=== PATIENT | male | born 1965 | race Caucasian/White ===

== ENCOUNTER 2017-01-17 19:09 | Emergency (ER) | payer MEDICAID ==
[2017-01-17] MEDS ORDERED: LIDOCAINE 1% INJ-PF (10 MG/ML) 30 ML SDV INJ ONE (22:08)
--- NOTE | 2017-01-17 22:11 | ER Document Report ---
ED Skin Rash/Insect Bite/Abscs <SONPOOJA MckeonELEAZAR - Last Filed: 01/17/17 22:58> - General Information source: Patient TRAVEL OUTSIDE OF THE [place] IN LAST 30 DAYS: No - HPI Patient complains to provider of: Other - abscess Onset: Other - 3 days Onset/Duration: Persistent <SHA ROSE - Last Filed: 01/21/17 07:03> - General Chief Complaint: Abscess Stated Complaint: LEFT ARM POSSIBLE ABSCESS Notes: Patient is a 51 year old male with a history of gout and pancreatic cancer presents to the ED with complaints of an abscess on his left volar forearm x3 days. Patient states he fell into a table 3 days ago and since then the abscess has presented with redness, swelling, pain and purulent drainage. Patients has been squeezing it daily to try and drain it. Patient denies any fever at this time. Patients reports that patient being diaphoretic at night but states that is normal since he began chemotherapy. Patients last chemo treatment was 01/08/2017. No other concerns or complaints at this time. (SHA ROSE) - Related Data Allergies/Adverse Reactions: No Known Allergies Allergy (Unverified 01/17/17 19:16) Past Medical History - General Information source: Patient - Social History Smoking Status: Unknown if Ever Smoked Family History: Reviewed & Not Pertinent Renal/ Medical History: Denies: Hx Peritoneal Dialysis Malignancy Medical History: Reports Hx Pancreatic Cancer Musculoskeltal Medical History: Reports Hx Gout Past Surgical History: Reports: Hx Orthopedic Surgery - back <SHA ROSE - Last Filed: 01/21/17 07:03> Review of Systems - Review of Systems Constitutional: See HPI, Diaphoresis. denies: Fever EENT: No symptoms reported Cardiovascular: No symptoms reported Respiratory: No symptoms reported Gastrointestinal: No symptoms reported Genitourinary: No symptoms reported Male Genitourinary: No symptoms reported Musculoskeletal: No symptoms reported Skin: See HPI, Other - abscess Hematologic/Lymphatic: No symptoms reported Neurological/Psychological: No symptoms reported <SHA ROSE - Last Filed: 01/21/17 07:03> Physical Exam - General General appearance: Appears well In distress: None - HEENT Head: Normocephalic, Atraumatic Eyes: Normal Extraocular movements intact: Yes Pupils: PERRL - Respiratory Respiratory status: No respiratory distress Breath sounds: Normal - Cardiovascular Rhythm: Regular Heart sounds: Normal auscultation Murmur: No - Abdominal Inspection: Normal Distension: No distension - Back Back: Normal - Extremities General upper extremity: Other - abscess on left volar forearm, see skin - Neurological Neuro grossly intact: Yes - Psychological Associated symptoms: Normal affect, Normal mood - Skin Skin Temperature: Warm Skin Moisture: Dry Skin Color: Normal Skin irregularity: Abscess - red and bruised area with swelling with central purulent drainage in left volar forearm, culture obtained <SHA ROSE - Last Filed: 01/21/17 07:03> - Vital signs Vitals: Temp Pulse Resp BP Pulse Ox 99.0 F 93 16 103/74 97 01/17/17 19:15 01/17/17 19:15 01/17/17 19:15 01/17/17 19:15 01/17/17 19:15 Procedures - Incision and Drainage Left Distal Arm Time completed: 22:55 Type: Simple Anesthetic type: 1% Lidocaine mL's of anesthetic: 4 I&D procedure: Shurclens applied, Iodoform packing placed Amount/type of drainage: minimal <ELEAZAR CLINE - Last Filed: 01/17/17 22:58> <SHA ROSE - Last Filed: 01/21/17 07:03> - Incision and Drainage Left Distal Arm Notes: 01/17/17 23:03 The abscess was opened with a mosquito. Large amount of necrotic debris, fat, and old clot was removed. The wound was irrigated with 30 mL's of normal saline. Quarter-inch iodoform gauze packing was placed. (ELEAZAR CLINE) Discharge <ELEAZAR CLINE - Last Filed: 01/17/17 22:58> <SHA ROSE - Last Filed: 01/21/17 07:03> - Discharge Clinical Impression: Abscess of forearm, left Condition: Stable Disposition: HOME, SELF-CARE Additional Instructions: Abscess: You have an abscess (boil). This a pus-forming infection, usually due to staph. Some boils may be left to drain on their own, but most require lancing. From the time the tender lump first appears, it may be three or four days before the abscess is ready to laurent. Local heat and rest help at this stage of treatment. An antibiotic may prevent spread of the infection. Once the abscess is opened, packing may be placed into it. This is done so pus is not sealed inside by premature closure of the cavity. The packing will be removed at your follow-up visit or you may be advised to remove it yourself at home. Sometimes this packing must be replaced a few times during healing. The wound will heal with surprisingly little scar. Depending on the size and location of an abscess, healing can take one to four weeks. You may shower and wash the area around the incision site two or three times a day. Antibiotics may be prescribed, but are usually not necessary after an abscess has been drained. If you develop fever, chilling, worsening pain, or increasing swelling in the area, call the doctor or return immediately. Keep the wound dressing clean and dry. Elevate the hand all the time. Take antibiotics as prescribed. Remove the dressing and the gauze packing on Friday. Keep wound clean and dressed after removing the packing. Follow-up with your doctor Friday to recheck the wound. RETURN TO THE EMERGENCY ROOM IF ANY NEW OR WORSENING SYMPTOMS. Prescriptions: Cephalexin Monohydrate [Keflex 500 mg Capsule] 500 mg PO QID #28 capsule Sulfamethoxazole/Trimethoprim [Bactrim Ds Tablet] 2 tab PO BID #28 tablet Scribe Attestation: 01/17/17 23:01 I personally performed the services described in the documentation, reviewed and edited the documentation which was dictated to the scribe in my presence, and it accurately records my words and actions. (ELEAZAR CLINE) Scribe Documentation - Scribe Written by Eda:: eda Lowery, 01/17/2017, [id number] acting as scribe for :: Son <SHA ROSE - Last Filed: 01/21/17 07:03>
[2017-01-17] MEDS ORDERED: SULFAMETHOXAZOLE/TRIMETHOPRIM 800-160 MG TABLET PO ONE (22:58)
[2017-01-17] MEDS ORDERED: CEPHALEXIN 500 MG CAPSULE PO ONE (22:58)
[2017-01-17 23:18] VITALS: BP 123/84
== END 2017-01-17 23:16 | disposition home or self-care (01) ==
LOC: ER 19:09
PROC: 0H9EXZZ Drainage of Left Lower Arm Skin, External Approach (ICD-10-PCS; principal; 2017-01-17)
DX: L02.414 Cutaneous abscess of left upper limb (principal); C25.9 Malignant neoplasm of pancreas, unspecified; R61 Generalized hyperhidrosis
CPT/HCPCS: 99283; 87070; 87075; 87077; 87186; 10060; J3490 ×2; 87205; A6266

== ENCOUNTER 2017-02-07 17:27 | Emergency (ER) | payer MEDICAID ==
--- NOTE | 2017-02-07 17:51 | ER Document Report ---
ED Seizure - General Chief Complaint: Seizure Stated Complaint: POSSIBLE SEIZURE Time Seen by Provider: 02/07/17 17:31 Mode of Arrival: Medic Information source: Patient, Relative Notes: EMS was called after patient had a witnessed seizure just prior to arrival. EMS reports that patient was initially responsive only to painful stimuli and was combative and attempting to pull out his IV. Patient upon entry to room is alert and talkative with family. Patient denies any complaints at present. Family states that patient did have a previous seizure about 3 months ago which was his first seizure ever. Patient does have a history of stage IV pancreatic cancer for which he received chemotherapy. Patient gets chemotherapy every 2 weeks and his last treatment was Friday. Patient was sitting in a chair when he had the seizure and did not have any fall to the floor or injury as a result of his seizure as his family was right there with him. - HPI Patient complains to provider of: History of seizures Quality of pain: No pain Preceding symptoms/context: denies: Recent alcohol intake Character of seizure: Generalized shaking, Staring Post-ictal symptoms: Confusion Injuries: None - Related Data Allergies/Adverse Reactions: No Known Allergies Allergy (Unverified 01/17/17 19:16) Past Medical History - General Information source: Patient, Relative - Social History Smoking Status: Current Every Day Smoker Frequency of alcohol use: None Drug Abuse: None Occupation: none Lives with: Family Family History: Reviewed & Not Pertinent - Past Medical History Cardiac Medical History: Reports: Hx Pulmonary Embolism Neurological Medical History: Reports: Hx Seizures Renal/ Medical History: Denies: Hx Peritoneal Dialysis Malignancy Medical History: Reports Hx Pancreatic Cancer Musculoskeltal Medical History: Reports Hx Gout Past Surgical History: Reports: Hx Orthopedic Surgery - back, Hx Vascular Surgery - port Review of Systems - Review of Systems Constitutional: No symptoms reported. denies: Fever, Recent illness EENT: No symptoms reported Cardiovascular: No symptoms reported. denies: Chest pain Respiratory: No symptoms reported. denies: Cough, Short of breath Gastrointestinal: No symptoms reported. denies: Nausea, Vomiting Genitourinary: No symptoms reported Male Genitourinary: No symptoms reported Musculoskeletal: No symptoms reported Skin: No symptoms reported Hematologic/Lymphatic: Easy bruising Neurological/Psychological: Confusion - initially after seizure, now resolved, Seizure. denies: Headaches Physical Exam - Vital signs Vitals: Temp Pulse Resp BP Pulse Ox 98.9 F 91 18 104/81 95 02/07/17 17:47 02/07/17 17:47 02/07/17 17:47 02/07/17 17:47 02/07/17 17:47 - General General appearance: Appears well, Alert In distress: None - HEENT Head: Normocephalic, Atraumatic Eyes: Normal Conjunctiva: Normal Extraocular movements intact: Yes Pupils: PERRL Nasal: Normal Mouth/Lips: Normal Mucous membranes: Normal Pharynx: Normal Neck: Normal, Lymphadenopathy. No: Supple - Respiratory Respiratory status: No respiratory distress Chest status: Nontender Breath sounds: Normal. No: Rales, Rhonchi, Stridor, Wheezing Chest palpation: Normal - Cardiovascular Rhythm: Regular Heart sounds: S1 appreciated, S2 appreciated Murmur: No - Back Back: Normal, Nontender. No: CVA tenderness - Extremities General upper extremity: Normal inspection, Normal ROM General lower extremity: Normal inspection, Normal ROM - Neurological Neuro grossly intact: Yes Kaylynn Coma Scale Eye Opening: Spontaneous Kaylynn Coma Scale Verbal: Oriented Lavelle Coma Scale Motor: Obeys Commands Kaylynn Coma Scale Total: 15 - Psychological Associated symptoms: Normal affect, Normal mood - Skin Skin Temperature: Warm Skin Moisture: Dry Skin Color: Ecchymosis - bilat upper extremities Course - Re-evaluation Re-evalutation: 02/07/17 17:[address] Anderson who agrees with planned diagnostic evaluation 02/07/17 19:03 Patient nauseated, patient vomited once while here. Patient takes Compazine to help with nausea and vomiting as a result of his chemo. Family states that typically he will vomit on his chemo days and they are not surprised by him feeling nauseous at this time as he just disconnected this afternoon from dose of chemotherapy. - Vital Signs Vital signs: Temp Pulse Resp BP Pulse Ox 98.9 F 91 18 104/81 95 02/07/17 17:47 02/07/17 17:47 02/07/17 17:47 02/07/17 17:47 02/07/17 17:47 - Laboratory Result Diagrams: 02/07/17 18:18 02/07/17 18:18 Laboratory results interpreted by me: 02/07/17 02/07/17 18:18 18:18 RBC 3.93 L Hgb 12.8 L Hct 37.7 L RDW 16.5 H Plt Count 131 L Sodium 134.7 L Magnesium 2.5 H Albumin 3.4 L Labs- Entire Visit 02/07/17 02/07/17 18:18 18:18 WBC 4.1 RBC 3.93 L Hgb 12.8 L Hct 37.7 L MCV 96 MCH 32.6 MCHC 34.0 RDW 16.5 H Plt Count 131 L Seg Neutrophils % 59.9 Lymphocytes % 30.1 Monocytes % 8.8 Eosinophils % 0.0 Basophils % 1.2 Absolute Neutrophils 2.4 Absolute Lymphocytes 1.2 Absolute Monocytes 0.4 Absolute Eosinophils 0.0 Absolute Basophils 0.0 Sodium 134.7 L Potassium 3.9 Chloride 98 Carbon Dioxide 25 Anion Gap 12 BUN 8 Creatinine 0.54 Est GFR ( Amer) > 60 Est GFR (Non-Af Amer) > 60 Glucose 108 Calcium 8.5 Magnesium 2.5 H Total Bilirubin 0.7 Direct Bilirubin 0.4 Indirect Bilirubin Not Reportable Neonat Total Bilirubin Not Reportable AST 28 ALT 23 Alkaline Phosphatase 97 Total Protein 6.6 Albumin 3.4 L 02/07/17 19:11 - Diagnostic Test Radiology reviewed: Reports reviewed Discharge - Discharge Clinical Impression: Seizure, Chemotherapy induced nausea and vomiting Condition: Stable Disposition: HOME, SELF-CARE Instructions: Vomiting ([facility]), Seizure, Known Epileptic ([facility]) Additional Instructions: Return immediately for any new or worsening symptoms Followup with your primary care provider, Ronaldo Haider, call tomorrow to make a followup appointment Follow-up with your oncologist on Friday for recheck. Return immediately over the weekend if you have any additional seizure like activity Do not drive or operate any vehicles or machinery
--- NOTE | 2017-02-07 18:20 | RADIOLOGY REPORT (SQ) ---
EXAM DESCRIPTION: CT HEAD WITHOUT COMPLETED DATE/TIME: 02/07/2017 6:12 pm REASON FOR STUDY: seizure, hx pancreatic cancer COMPARISON: None. TECHNIQUE: Axial images acquired through the brain without intravenous contrast. Images reviewed wi th bone, brain and subdural windows. Images stored on PACS. All CT scanners at this facility use dose modulation, iterative reconstruction, and/or weight based d osing when appropriate to reduce radiation dose to as low as reasonably achievable (ALARA). [facility]: Dose Right [facility]: CareDose [facility]: Dose Right [facility]: Teradose 4D [facility]: Smart GeoOP RADIATION DOSE: Up-to-date CT equipment and radiation dose reduction techniques were employed. CTDIv ol: 64.6 mGy. DLP: 1551 mGy-cm. mGy. LIMITATIONS: None. FINDINGS: VENTRICLES: Normal size and contour. CEREBRUM: No masses. No hemorrhage. No midline shift. Normal wang/white matter differentiation. N o evidence for acute infarction. CEREBELLUM: No masses. No hemorrhage. No alteration of density. No evidence for acute infarction. EXTRAAXIAL SPACES: No fluid collections. No masses. ORBITS AND GLOBE: No intra- or extraconal masses. Normal contour of globe without masses. CALVARIUM: No fracture. PARANASAL SINUSES: No fluid or mucosal thickening. SOFT TISSUES: No mass or hematoma. OTHER: No other significant finding. IMPRESSION: NORMAL BRAIN CT WITHOUT CONTRAST. TECHNICAL DOCUMENTATION: JOB ID: [id number] Quality ID # [id number]: Final reports with documentation of one or more dose reduction techniques (e.g., Au tomated exposure control, adjustment of the mA and/or kV according to patient size, use of iterative reconstruction technique) 2010 [employer]- All Rights Reserved
[2017-02-07 18:28] LABS: ABSOLUTE LYMPHOCYTES (AUTO) 1.2 10^3/uL (0.5-4.7); ABSOLUTE MONOCYTES (AUTO) 0.4 10^3/uL (0.1-1.4); ABSOLUTE NEUT (AUTO) 2.4 10^3/uL (1.7-8.2); BASOPHILS % (AUTO) 1.2 % (0-2); HEMATOCRIT 37.7 % (37.9-51.0); HEMOGLOBIN 12.8 g/dL (13.5-17.0); HGB HCT DIFFERENCE 0.7; LYMPHOCYTES % (AUTO) 30.1 % (13-45); MEAN CORPUSCULAR HEMOGLOBIN 32.6 pg (27.0-33.4); MEAN CORPUSCULAR VOLUME 96 fl (80-97); MONOCYTES % (AUTO) 8.8 % (3-13); RED BLOOD COUNT 3.93 10^6/uL (4.35-5.55); RED CELL DISTRIBUTION WIDTH 16.5 % (11.5-14.0); SEGMENTED NEUTROPHILS % (AUTO) 59.9 % (42-78); WHITE BLOOD COUNT 4.1 10^3/uL (4.0-10.5)
[2017-02-07 18:48] LABS: ALANINE AMINOTRANSFERASE 23 U/L (21-72); ALBUMIN 3.4 g/dL (3.5-5.0); ALKALINE PHOSPHATASE 97 U/L (38-126); ANION GAP 12 (5-19); ASPARTATE AMINO TRANSFERASE 28 U/L (17-59); BILIRUBIN,DIRECT 0.4 mg/dL (0.0-0.4); BILIRUBIN,TOTAL 0.7 mg/dL (0.2-1.3); BLOOD UREA NITROGEN 8 mg/dL (7-20); CALCIUM 8.5 mg/dL (8.4-10.2); CARBON DIOXIDE 25 mmol/L (22-30); CHLORIDE 98 mmol/L (98-107); CREATININE RESULT 0.54 mg/dL (0.52-1.25); GLUCOSE 108 mg/dL (75-110); MAGNESIUM 2.5 mg/dL (1.6-2.3); POTASSIUM 3.9 mmol/L (3.6-5.0); SODIUM 134.7 mmol/L (137-145); TOTAL PROTEIN 6.6 g/dL (6.3-8.2)
[2017-02-07] MEDS ORDERED: PROCHLORPERAZINE EDISYLATE INJ 10 MG/2 ML VIAL IV ONE (19:03)
[2017-02-07 19:51] VITALS: BP 102/77
--- NOTE | 2017-02-08 16:38 | EKG REPORT ---
SEVERITY:- ABNORMAL ECG - SINUS RHYTHM LOW VOLTAGE THROUGHOUT CONSIDER ANTEROSEPTAL INFARCT : Confirmed by: Cora Dutton 08-Feb-2017 16:37:50
== END 2017-02-07 19:51 | disposition home or self-care (01) ==
LOC: ER 17:27
DX: R56.9 Unspecified convulsions (principal); R11.2 Nausea with vomiting, unspecified; Z79.899 Other long term (current) drug therapy; F17.200 Nicotine dependence, unspecified, uncomplicated
CPT/HCPCS: 93005; 99284; 96374; 36415; 83735; 85025; 80053; 70450; 93010; J0780

== ENCOUNTER 2017-06-07 09:02 | Inpatient (IN) | payer MEDICAID ==
[2017-06-07] MEDS ORDERED: RINGERS SOLUTION,LACTATED 1,000 ML IV ONE (09:24)
[2017-06-07] MEDS ORDERED: NORMAL SALINE 1000 ML 1,000 ML IV PRN (09:24)
--- NOTE | 2017-06-07 09:31 | ER Document Report ---
ED Seizure - General Chief Complaint: Seizure Stated Complaint: SEIZURE Time Seen by Provider: 06/07/17 09:08 Notes: 2-year-old male terminally ill with pancreatic cancer with this disease, was not eating and drinking for the last 3 days, this morning he had 2 episodes of seizures. He had another episode of seizure a few weeks ago. EMS was called with, gave Versed and brought him into the ED. His mental status is gradually going down, he has been taking chemotherapy 2. He has not drank anything for the last 3 days and had anything for 3 days. There is no history of any fever. History also limited - Related Data Allergies/Adverse Reactions: No Known Allergies Allergy (Verified 06/07/17 10:21) Home Medications: Current Home Medications Fentanyl [Fentanyl] 200 mcg TOP Q72H 06/07/17 [History] Furosemide [Lasix 20 mg Tablet] 20 mg PO QAM 06/07/17 [History] Levetiracetam [Keppra 500 mg Tablet] 500 mg PO Q12 06/07/17 [History] Magnesium Oxide [Mag-Ox 400 mg Tablet] 400 mg PO BID 06/07/17 [History] Morphine Sulfate [Morphine Ir 15 Mg Tablet] 1 - 2 tab PO Q4H PRN 06/07/17 [ History] Potassium Chloride [Klor-Con M10] 10 meq PO DAILY 06/07/17 [History] Prochlorperazine Maleate [Compazine 10 mg Tablet] 10 mg PO Q6H PRN 06/07/17 [ History] Rivaroxaban [Xarelto] 20 mg PO DAILY 06/07/17 [History] Spironolactone 25 mg PO DAILY PRN 06/07/17 [History] Past Medical History - Social History Smoking Status: Former Smoker Family History: Reviewed & Not Pertinent - Past Medical History Cardiac Medical History: Reports: Hx Pulmonary Embolism Neurological Medical History: Reports: Hx Seizures Renal/ Medical History: Denies: Hx Peritoneal Dialysis Malignancy Medical History: Reports Hx Pancreatic Cancer Musculoskeltal Medical History: Reports Hx Gout Past Surgical History: Reports: Hx Orthopedic Surgery - back, Hx Vascular Surgery - port Review of Systems - Review of Systems -: Yes ROS unobtainable due to patient's medical condition Physical Exam - Vital signs Vitals: Temp Pulse Resp BP Pulse Ox 97.7 F 107 H 19 104/80 84 L 06/07/17 09:10 06/07/17 09:10 06/07/17 09:10 06/07/17 09:10 06/07/17 09:10 - Notes Notes: PHYSICAL EXAMINATION: GENERAL: Cachectic, unresponsive to painful stimuli, DNR status, hydrated. HEAD: Atraumatic, normocephalic. EYES: Pupils equal round and reactive to light, ENT: Nares patent, oropharynx clear without exudates. Dry mucosa NECK: Normal range of motion, supple without lymphadenopathy LUNGS: Clear to auscultation could not audible breath sounds. No wheezes rales or rhonchi. HEART: Regular rate and rhythm without murmurs ABDOMEN: Soft, scaphoid. No guarding, no rebound. No masses appreciated. Musculoskeletal: Wasting of muscles NEUROLOGICAL: Normal scale of the PSYCH: \ SKIN: Dry skin Course - Re-evaluation Re-evalutation: 06/07/17 09:01 The family was contacted and they are in the room, had a long discussion with them about this, he has a living will which indicates only palliative care. And also DNR status. 06/07/17 11:02 Again had a long discussion for about 10 minutes, family asked a question of survival for him and finally came to the conclusion that they agree with his will and need palliative care possibly hospice care to. 06/07/17 16:20 Patient's case was discussed with hospitalist and currently being admitted, hospice will not take him till Friday. - Vital Signs Vital signs: Temp Pulse Resp BP Pulse Ox 97.7 F 107 H 13 117/81 100 06/07/17 09:10 06/07/17 09:10 06/07/17 15:01 06/07/17 15:01 06/07/17 15:01 - Laboratory Result Diagrams: 06/07/17 09:23 06/07/17 09:23 Laboratory results interpreted by me: 06/07/17 06/07/17 06/07/17 09:23 09:23 09:23 RBC 4.20 L Hgb 13.2 L RDW 18.1 H Seg Neutrophils % 85.7 H Lymphocytes % 10.3 L Carbon Dioxide 13 L Anion Gap 24 H Glucose 137 H Lactic Acid 11.8 H Magnesium 2.4 H Ammonia Total Protein 6.2 L 06/07/17 09:23 RBC Hgb RDW Seg Neutrophils % Lymphocytes % Carbon Dioxide Anion Gap Glucose Lactic Acid Magnesium Ammonia 57.7 H Total Protein Discharge - Discharge Clinical Impression: 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
[2017-06-07 09:39] LABS: ABSOLUTE BASOPHILS # (AUTO) 0.1 10^3/uL (0.0-0.2); ABSOLUTE LYMPHOCYTES (AUTO) 0.9 10^3/uL (0.5-4.7); ABSOLUTE MONOCYTES (AUTO) 0.3 10^3/uL (0.1-1.4); ABSOLUTE NEUT (AUTO) 7.4 10^3/uL (1.7-8.2); BASOPHILS % (AUTO) 0.6 % (0-2); EOSINOPHILS % (AUTO) 0.3 % (0-6); HEMATOCRIT 40.2 % (37.9-51.0); HEMOGLOBIN 13.2 g/dL (13.5-17.0); HGB HCT DIFFERENCE -0.6; LYMPHOCYTES % (AUTO) 10.3 % (13-45); MEAN CORPUSCULAR HEMOGLOBIN 31.3 pg (27.0-33.4); MEAN CORPUSCULAR HGB CONC 32.7 g/dL (32.0-36.0); MEAN CORPUSCULAR VOLUME 96 fl (80-97); MONOCYTES % (AUTO) 3.1 % (3-13); RED CELL DISTRIBUTION WIDTH 18.1 % (11.5-14.0); SEGMENTED NEUTROPHILS % (AUTO) 85.7 % (42-78); WHITE BLOOD COUNT 8.6 10^3/uL (4.0-10.5)
[2017-06-07 10:05] LABS: ALANINE AMINOTRANSFERASE 37 U/L (21-72); ALBUMIN 3.7 g/dL (3.5-5.0); ALKALINE PHOSPHATASE 98 U/L (38-126); ASPARTATE AMINO TRANSFERASE 29 U/L (17-59); BILIRUBIN,DIRECT 0.4 mg/dL (0.0-0.4); BILIRUBIN,TOTAL 0.8 mg/dL (0.2-1.3); BLOOD UREA NITROGEN 13 mg/dL (7-20); CALCIUM 8.9 mg/dL (8.4-10.2); CARBON DIOXIDE 13 mmol/L (22-30); CHLORIDE 101 mmol/L (98-107); CREATININE RESULT 0.67 mg/dL (0.52-1.25); GLUCOSE 137 mg/dL (75-110); MAGNESIUM 2.4 mg/dL (1.6-2.3); POTASSIUM 3.8 mmol/L (3.6-5.0); SODIUM 137.5 mmol/L (137-145); TOTAL PROTEIN 6.2 g/dL (6.3-8.2)
[2017-06-07 10:06] LABS: ALCOHOL < 10 mg/dL (NONE DETECTED)
[2017-06-07 10:07] LABS: ANION GAP 24 (5-19)
[2017-06-07] MEDS ORDERED: METOCLOPRAMIDE HCL INJ/PF 10 MG/2 ML SDV IV ONE (11:06)
--- NOTE | 2017-06-07 12:38 | RADIOLOGY REPORT (SQ) ---
EXAM DESCRIPTION: CHEST SINGLE VIEW COMPLETED DATE/TIME: 06/07/2017 12:22 pm REASON FOR STUDY: cough COMPARISON: None. EXAM PARAMETERS: NUMBER OF VIEWS: One view. TECHNIQUE: Single frontal radiographic view of the chest acquired. RADIATION DOSE: NA LIMITATIONS: None. FINDINGS: LUNGS AND PLEURA: No opacities, masses or pneumothorax. No pleural effusion. MEDIASTINUM AND HILAR STRUCTURES: No masses. Contour normal. HEART AND VASCULAR STRUCTURES: Heart normal in size. Normal vasculature. BONES: No acute findings. HARDWARE: Vascular access port. OTHER: No other significant finding. IMPRESSION: NO ACUTE RADIOGRAPHIC FINDING IN THE CHEST. TECHNICAL DOCUMENTATION: JOB ID: [id number] [employer]- All Rights Reserved
[2017-06-07] MEDS ORDERED: PROMETHAZINE HCL INJ 25 MG/1 ML VIAL ONE ×2 (12:48→12:51)
[2017-06-07] MEDS ORDERED: PROMETHAZINE HCL INJ 50 MG/1 ML VIAL IM PRN (12:48)
[2017-06-07] MEDS ORDERED: IPRATROPIUM/ALBUTEROL 0.5-2.5 MG/3 ML AMPUL NEB PRN (16:51)
[2017-06-07] MEDS ORDERED: POTASSI CL 10 MEQ/D5-1/2NS 1L 10 MEQ/1,000 ML RTUINJ IV PRN (16:51)
[2017-06-07] MEDS ORDERED: HYDROMORPHONE HCL INJ/PF 2 MG/ML AMPULE IV PRN (16:51)
[2017-06-07] MEDS ORDERED: LEVETIRACETAM 1000 MG/NACL-ISO 1,000 MG/100 ML RTUPB IV PRN ×2 (16:51→18:02)
[2017-06-07] MEDS ORDERED: DEXTROSE 50%-WATER 25 GM/50 ML DISP.SYRIN IV PRN ×2 (16:51)
[2017-06-07] MEDS ORDERED: DEXTROSE 40% GEL 15 GM TUBE PO PRN ×2 (16:51)
[2017-06-07] MEDS ORDERED: ONDANSETRON HCL INJ/PF 4 MG/2 ML SDV IV PRN ×2 (16:51→18:06)
[2017-06-07] MEDS ORDERED: PROMETHAZINE HCL INJ 25 MG/1 ML VIAL IV PRN (16:51)
[2017-06-07] MEDS ORDERED: ACETAMINOPHEN 650 MG SUPP.RECT PR PRN (16:51)
[2017-06-07] MEDS ORDERED: GLUCAGON,HUMAN RECOMB 1 MG INJ SUBCUT PRN (16:51)
--- NOTE | 2017-06-07 18:01 | PDOC H&P ---
History of Present Illness Admission Date/PCP: 06/07/17 16:38 Patient complains of: I do not want to be bothered History of Present Illness: PETRA HARO JR is a 52 year old male with a history of metastatic pancreatic cancer who arrived to ED via EMS since had seizure while at home. It is my understanding that while in route had 2 consecutive seizures and was medicated with a total of 5 mg of Versed. Patient had been living with his sister close to a year. Patient sees Dr. Haider over [place] for treatment of metastatic cancer. This past week patient finalized all the details about his will. Family relate that patient appeared to be relieved and had been accepting finally that he does have cancer and nothing can be done. He continues smoking and has a history of alcohol abuse. Patient had not been taking his usual medications therefore likely contributing to seizure according to his sister. Patient also had been having nausea and nurse notified that patient was treated with Phenergan 50 mg IM. Attempts have been made in ED to transfer patient for hospice bed is my understanding that there is no hospice MD but until Friday. Patient's sister wishes to take him home with hospice. She is her next of kin and expresses that patient is DNR and wanting comfort measures only. Patient will be admitted under the hospitalist service to facilitate pain management on this terminal patient. Past Medical History Cardiac Medical History: Reports: Pulmonary Embolism Pulmonary Medical History: Reports: Chronic Obstructive Pulmonary Disease (COPD) EENT Medical History: Reports: None Neurological Medical History: Reports: None, Seizures Endocrine Medical History: Reports: None Renal/ Medical History: Reports: None Malignancy Medical History: Reports: Pancreatic Cancer Musculoskeltal Medical History: Reports: Gout Past Surgical History Past Surgical History: Reports: Orthopedic Surgery - back, Vascular Surgery - port Social History Information Source: Relative Smoking Status: Current Every Day Smoker Frequency of Alcohol Use: None Hx Recreational Drug Use: Yes Drugs: Marijuana Hx Prescription Drug Abuse: No - Advance Directive Resuscitation Status: Comfort Measures Only Family History Family History: Reviewed & Not Pertinent Parental Family History Reviewed: Yes Children Family History Reviewed: Yes Sibling(s) Family History Reviewed.: Yes Medication/Allergy Home Medications: Fentanyl [Fentanyl] 200 mcg TOP Q72H 06/07/17 Furosemide [Lasix 20 mg Tablet] 20 mg PO QAM 06/07/17 Levetiracetam [Keppra 500 mg Tablet] 500 mg PO Q12 12/09/17 Magnesium Oxide [Mag-Ox 400 mg Tablet] 400 mg PO BID 06/07/17 Morphine Sulfate [Morphine Ir 15 Mg Tablet] 1 - 2 tab PO Q4H PRN 06/07/17 Potassium Chloride [Klor-Con M10] 10 meq PO DAILY 06/07/17 Prochlorperazine Maleate [Compazine 10 mg Tablet] 10 mg PO Q6H PRN 06/07/17 Rivaroxaban [Xarelto] 20 mg PO DAILY 06/07/17 Spironolactone 25 mg PO DAILY PRN 06/07/17 Allergies/Adverse Reactions: No Known Allergies Allergy (Verified 06/07/17 10:21) Physical Exam Vital Signs: Temp Pulse Resp BP Pulse Ox 97.7 F 107 H 13 117/81 100 06/07/17 09:10 06/07/17 09:10 06/07/17 15:01 06/07/17 15:01 06/07/17 16:10 General appearance: PRESENT: thin Head exam: PRESENT: atraumatic, normocephalic Eye exam: PRESENT: EOMI, PERRLA Ear exam: PRESENT: normal external ear exam Neck exam: PRESENT: full ROM. ABSENT: JVD, tenderness Respiratory exam: PRESENT: crackles, rhonchi Cardiovascular exam: PRESENT: RRR. ABSENT: diastolic murmur, systolic murmur Vascular exam: PRESENT: pallor GI/Abdominal exam: PRESENT: other - Unable to auscultate since did not want to be touched Neurological exam: PRESENT: alert, oriented to person Psychiatric exam: PRESENT: anxious, depressed Results Impressions: Chest X-Ray 06/07/17 10:52 IMPRESSION: NO ACUTE RADIOGRAPHIC FINDING IN THE CHEST. 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 Will continue with fentanyl patches, will add Dilaudid IV and Ativan. Consult case management for hospice at home (2) Terminal illness, late stage Is this a current diagnosis for this admission?: Yes Plan: Comfort (3) Seizure Is this a current diagnosis for this admission?: Yes Plan: Will order a one-time dose of Keppra IV. Also will be covered with Ativan IV as needed - Time Time Spent: 50 to 70 Minutes Medications reviewed and adjusted accordingly: Yes Anticipated discharge: Hospice Within: within 48 hours - Inpatient Certification Based on my medical assessment, after consideration of the patient's comorbidities, presenting symptoms, or acuity I expect that the services needed warrant INPATIENT care.: Yes I certify that my determination is in accordance with my understanding of Medicare's requirements for reasonable and necessary INPATIENT services [42 CFR 412.3e].: Yes Medical Necessity: Need for Pain Control
[2017-06-07] MEDS: LORAZEPAM INJ 2 MG/1 ML VIAL IV PRN (19:43)
[2017-06-07] MEDS ORDERED: LEVETIRACETAM 1000 MG/NACL-ISO 1,000 MG/100 ML RTUPB IV SCH (20:15)
[2017-06-07] MEDS ORDERED: LEVETIRACETAM INJ/PF 500 MG/5 ML SDV IV ONE (21:19)
--- NOTE | 2017-06-07 23:11 | EKG REPORT ---
SEVERITY:- ABNORMAL ECG - SINUS TACHYCARDIA LOW VOLTAGE THROUGHOUT CONSIDER ANTEROSEPTAL INFARCT : Confirmed by: Cora Dutton 07-Jun-2017 23:11:41
[2017-06-08] MEDS: LORAZEPAM INJ 2 MG/1 ML VIAL IV PRN ×2 (01:38→17:14)
--- NOTE | 2017-06-08 15:26 | PDOC PROGRESS REPORT ---
Subjective Progress Note for:: 06/08/17 Subjective:: Patient resting and unable to obtain. Sister wishes for patient not to be disturbed ROS Unable to obtain due to mental status All significant laboratories and diagnostics have been reviewed Reason For Visit: METASTATIC PANCREATIC CANCER Physical Exam Vital Signs: Temp Pulse Resp BP Pulse Ox 97.7 F 107 H 13 114/86 H 68 L 06/07/17 09:10 06/07/17 09:10 06/07/17 15:01 06/07/17 17:01 06/07/17 17:00 Intake & Output 06/07/17 06/08/17 06/09/17 06:59 06:59 06:59 Intake Total 100 Output Total 375 Balance -275 Additional comments: She still her wishes for patient the left resting. Results Impressions: Chest X-Ray 06/07/17 10:52 IMPRESSION: NO ACUTE RADIOGRAPHIC FINDING IN THE CHEST. 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 Has been resting since admission and will continue present management. insurance agency sales manager assisting in getting hospice patient's home (2) Terminal illness, late stage Is this a current diagnosis for this admission?: Yes Plan: Comfort (3) Seizure Is this a current diagnosis for this admission?: Yes Plan: No further seizure activity since admitted. Ativan ordered since admission - Time Time Spent with patient: Less than 15 minutes Medications reviewed and adjusted accordingly: Yes Anticipated discharge: Other - Home with hospice Within: within 48 hours - Inpatient Certification Based on my medical assessment, after consideration of the patient's comorbidities, presenting symptoms, or acuity I expect that the services needed warrant INPATIENT care.: Yes I certify that my determination is in accordance with my understanding of Medicare's requirements for reasonable and necessary INPATIENT services [42 CFR 412.3e].: Yes Medical Necessity: Need for Pain Control
[2017-06-09] MEDS ORDERED: FENTANYL 100 MCG/HR PATCH.TD72 TD SCH (10:00)
[2017-06-09 11:57] VITALS: BP 106/77
--- NOTE | 2017-06-09 15:07 | PDOC DISCHARGE SUMMARY ---
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 Is this a current diagnosis for this admission?: Yes (2) Terminal illness, late stage Is this a current diagnosis for this admission?: Yes (3) Seizure Is this a current diagnosis for this admission?: Yes - Additional Information Resuscitation Status: Comfort Measures Only Discharge Diet: As Tolerated Discharge Activity: Activity As Tolerated Home Medications: Fentanyl 200 mcg TOP Q72H 06/07/17 Levetiracetam [Keppra 500 mg Tablet] 500 mg PO Q12 06/07/17 Magnesium Oxide [Mag-Ox 400 mg Tablet] 400 mg PO BID 06/07/17 Morphine Sulfate [Morphine Ir 15 mg Tablet] 1 - 2 tab PO Q4H PRN 06/07/17 Potassium Chloride [Klor-Con M10] 10 meq PO DAILY 06/07/17 Prochlorperazine Maleate [Compazine 10 mg Tablet] 10 mg PO Q6H PRN 06/07/17 Rivaroxaban [Xarelto] 20 mg PO DAILY 06/07/17 History of Present Illness History of Present Illness: PETRA HARO JR is a 52 year old male with a history of metastatic pancreatic cancer who arrived to ED via EMS since had a seizure while at home. It is my understanding that while in route had 2 consecutive seizures and was medicated with a total of 5 mg of Versed. Patient had been living with his sister close to a year. Patient sees Dr. Haider over [place] for treatment of metastatic cancer. He recently finalized all the details about his will. Family related that patient appeared to be relieved and had been accepting finally that he does have cancer and nothing can be done. He continues smoking and has a history of alcohol abuse. Patient had not been taking his usual medications therefore likely contributing to seizure according to his sister. Patient also had been having nausea and nurse notified that patient was treated with Phenergan 50 mg IM. Attempts had been made in ED to transfer patient for hospice bed. I was informed that there is no hospice MD but until 06/09. Patient's sister wishes were to take him home with hospice. She is her next of kin and expressed that patient was DNR and wanted comfort measures only. Patient will be admitted under the hospitalist service to facilitate pain management on this terminal patient and disposition on 06/09 Hospital Course Hospital Course: Patient was admitted to further facilitate pain management and disposition on the day of discharge. He was administered Keppra IV with no further recurrence of seizure. We continued fentanyl patch and in addition he was medicated with morphine and Ativan IV as needed. Patient was able to tolerate oral at the time of discharge. Patient was evaluated by hospice and arrangements were made at home and prompted to discharge Physical Exam Vital Signs: Temp Pulse Resp BP Pulse Ox 99.6 F 94 18 93/65 L 97 06/09/17 07:50 06/09/17 07:50 06/09/17 07:50 06/09/17 07:50 06/09/17 07:50 Intake & Output 06/08/17 06/09/17 06/10/17 06:59 06:59 06:59 Intake Total 100 70 Output Total 375 700 Balance -275 -308 Additional comments: Patient refused to be examined Results Impressions: Chest X-Ray 06/07/17 10:52 IMPRESSION: NO ACUTE RADIOGRAPHIC FINDING IN THE CHEST. Plan Discharge Plan: Discharge home with hospice Time Spent: Less than 30 Minutes
[2017-06-10] MEDS ORDERED: FENTANYL 100 MCG/HR PATCH.TD72 TD SCH (10:00)
== END 2017-06-09 12:34 | disposition hospice, home (50) | DRG 101 ==
LOC: ER 09:02 → EH 16:38 → 4N 18:17
PROVIDERS: ADMIT Family Medicine; ATTEND Family Medicine
DX: G40.89 Other seizures (principal); C78.89 Secondary malignant neoplasm of other digestive organs; Z66 Do not resuscitate; C80.1 Malignant (primary) neoplasm, unspecified; J44.9 Chronic obstructive pulmonary disease, unspecified; M10.9 Gout, unspecified; F17.210 Nicotine dependence, cigarettes, uncomplicated; Z91.14 Patient's other noncompliance with medication regimen; Z79.01 Long term (current) use of anticoagulants; Z79.891 Long term (current) use of opiate analgesic; Z79.899 Other long term (current) drug therapy; Z86.711 Personal history of pulmonary embolism; Z75.1 Person awaiting admission to adequate facility elsewhere
CPT/HCPCS: 36415; 71010; 80053; 80307; 82140; 83605; 83735; 85025; 93005; 93010; 96365; 96372; 96375; 99285; J1170; J2060; J2405; J2550; J2765; J3490; J7030; J7120